=== PATIENT | female | born 1975 | race African-American/Black ===

== ENCOUNTER 2019-11-04 13:19 | Outpatient (RCR) | payer OTHER | END 2020-02-02 | disposition home or self-care (01) | LOC: WSOH | DX: S05.02XA Injury of conjunctiva and corneal abrasion without foreign body, left eye, initial encounter (principal); Z98.890 Other specified postprocedural states; J45.909 Unspecified asthma, uncomplicated; Y99.0 Civilian activity done for income or pay ==

== ENCOUNTER → 2021-06-05 | Outpatient (RCR) | payer OTHER | END | disposition home or self-care (01) | LOC: WSOH | DX: S39.012A Strain of muscle, fascia and tendon of lower back, initial encounter (principal); Z79.899 Other long term (current) drug therapy; Y99.0 Civilian activity done for income or pay; Z98.890 Other specified postprocedural states ==

== ENCOUNTER → 2021-08-04 | Outpatient (CLI) | payer BC | LOC: MC.RAD 06-23 10:15 | DX: Z12.31 Encounter for screening mammogram for malignant neoplasm of breast (principal) ==